=== PATIENT | female | born 1965 | race African-American/Black ===

== ENCOUNTER 2018-02-06 07:28 | Inpatient (IN) ==
[2018-02-06] MEDS ORDERED: Labetalol HCl Inj 100 MG/20 ML Vial IV.PUSH ONE (07:40)
--- NOTE | 2018-02-06 07:52 | ED ---
HPI General Chief Complaint: Chest Pain Stated Complaint: chest pain Time Seen by Provider: 02/06/18 07:39 History of Present Illness HPI narrative: This is a 52-year-old female with history of hypertension, renal failure, diabetes mellitus, hyperlipidemia, who presents here today with complaints of chest pain with radiation to her left upper back. Patient reports left-sided pain. She reports nausea with no diaphoresis. She reports pain is a sharp and stabbing pain. She states it is a 9-10 out of 10 on the pain scale. She states that it comes and goes but it is worse today. Patient states she has been off all of her medications for 2 weeks. She reports that she is visiting here from [place]. She reports her physician is in [place]. She denies any she denies any shortness of breath. Related Data Previous Rx's Medication Instructions Recorded aspirin 81 mg PO DAILY 30 Days #30 tab 02/08/18 bumetanide 2 mg PO DAILY 30 Days #60 tab 02/08/18 cholecalciferol (vitamin D3) 1,000 unit PO DAILY 30 Days #30 tab 02/08/18 [Vitamin D3] clonidine HCl [Catapres] 0.2 mg PO BID 30 Days #60 tab 02/08/18 gabapentin [Neurontin] 300 mg PO TID 30 Days #90 cap 02/08/18 hydralazine 50 mg PO TID 30 Days #90 tab 02/08/18 insulin detemir U-100 [Levemir 10 unit SUB-Q BID 30 Days #6 ml 02/08/18 U-100 Insulin] levofloxacin 250 mg PO DAILY@1100 5 Days tab 02/08/18 metoprolol tartrate 25 mg PO BID 30 Days #60 tab 02/08/18 Allergies Allergy/AdvReac Type Severity Reaction Status Date / Time No Known Allergies Allergy Verified 02/06/18 07:36 Review of Systems ROS: all other systems reviewed are negative Constitutional Reports system reviewed and no additional complaints, except as docu Eyes Reports blurry vision, Reports change in vision (Blurry vision.) and Denies diplopia ENT Reports system reviewed and no additional complaints, except as docu Cardiovascular Reports chest pain (As per HPI), Denies dyspnea and Denies dyspnea on exertion Respiratory Denies chest congestion, Denies pain on inspiration and Denies dyspnea Gastrointestinal Denies diarrhea, Reports nausea and Denies vomiting Genitourinary Reports system reviewed and no additional complaints, except as docu Musculoskeletal Reports system reviewed and no additional complaints, except as docu and Reports back pain (Left-sided chest pain radiating to her left back.) Neurologic Reports system reviewed and no additional complaints, except as docu, Denies dizziness and Denies headache(s) PMFSH Social History Social History Substance History: No History of Abuse Second Hand Smoke Exposure: No Smoking Status: Former smoker Tobacco Type: Cigarettes How Often Do You Have a Drink Containing Alcohol: Monthly or less Recent Travel in [facility] within the Last 8 Weeks: No Recent Out of Country Travel within the Last 8 Weeks: No Exam Narrative Exam Narrative: GENERAL: Well-developed well-nourished female in no acute respiratory distress. SKIN: Focused skin assessment warm/dry. HEAD: Atraumatic. Normocephalic. EYES: Pupils equal and round. No scleral icterus. No injection or drainage. ENT: No nasal bleeding or discharge. Mucous membranes pink and moist. NECK: Trachea midline. Supple with no obvious JVD. CARDIOVASCULAR: Regular rate and rhythm. There is a 3 out of 6 systolic murmur heard at the left sternal border. RESPIRATORY: No accessory muscle use. Clear to auscultation. Breath sounds equal bilaterally. GASTROINTESTINAL: Abdomen soft, non-tender, nondistended. Hepatic and splenic margins not palpable. MUSCULOSKELETAL: No obvious deformities. No clubbing. No cyanosis. No edema. NEUROLOGICAL: Awake and alert. No obvious cranial nerve deficits. Motor grossly within normal limits. Normal speech. Course Initial Documented Vital Signs Temperature 98.0 F 02/06/18 07:33 Pulse Rate 89 02/06/18 07:33 Respiratory Rate 19 02/06/18 07:33 Blood Pressure 253/114 H 02/06/18 07:33 Pulse Oximetry 100 02/06/18 07:33 Last Documented Vital Signs Temperature 97.3 F L 02/08/18 12:00 Pulse Rate 66 02/08/18 12:00 Respiratory Rate 18 02/08/18 12:00 Blood Pressure 145/72 H 02/08/18 12:00 Pulse Oximetry 99 02/08/18 12:00 Medical Decision Making MDM Narrative Medical decision making narrative: 52-year-old female with history of hypertension, diabetes mellitus, chronic kidney disease who presents today with uncontrolled hypertension. Patient states she has been out of her medications for 2 weeks. The patient was also complaining of chest pain that radiated to her back. Patient's cardiac enzymes are within normal limits. Patient has a creatinine above 5. She does not know her last creatinine. Patient also has anemia likely secondary to the chronic kidney disease. Her potassium was 5.3. She has been given 2 doses of hypertensive medication with the last bringing it down which was clonidine. Given this, the patient will be admitted to the hospital. Case was discussed with the [facility] hospitalist. Working diagnosis is chest pain and uncontrolled hypertension. Medical Screen Exam Complete: Yes Emergency Medical Condition: Yes Differential Diagnosis Differential Diagnosis: ACS versus hypertensive urgency versus metabolic derangement versus thoracic aneurysm Lab Data Result diagrams: 02/08/18 06:12 02/08/18 06:12 Lab Results 02/06/18 02/06/18 02/06/18 Range/Units 08:00 08:00 08:00 WBC 7.1 (4.0-11.0) th/mm3 RBC 3.04 L (4.00-5.30) mil/mm3 Hgb 8.4 L (11.6-15.3) gm/dL Hct 26.3 L (35.0-46.0) % MCV 86.6 (80.0-100.0) fL MCH 27.6 (27.0-34.0) pg MCHC 31.9 L (32.0-36.0) % RDW 17.8 H (11.6-17.2) % Plt Count 303 (150-450) th/mm3 MPV 7.1 (7.0-11.0) fL Neut % (Auto) 58.7 (16.0-70.0) % Lymph % (Auto) 33.2 (9.0-44.0) % [place] % (Auto) 5.7 (0.0-8.0) % Eos % (Auto) 1.7 (0.0-4.0) % Baso % (Auto) 0.7 (0.0-2.0) % Neut # (Auto) 4.2 (1.8-7.7) th/mm3 Lymph # (Auto) 2.4 (1.0-4.8) th/mm3 [place] # (Auto) 0.4 (0.0-0.9) th/mm3 Eos # (Auto) 0.1 (0.0-0.4) th/mm3 Baso # (Auto) 0.0 (0.0-0.2) th/mm3 WBC Differential . Differential Comment Auto diff final Sodium 144 (136-145) meq/L Potassium 4.5 (3.5-5.1) meq/L Chloride 116 H (98-107) meq/L Carbon Dioxide 17.3 L (21.0-32.0) meq/L Anion Gap 11 (5-15) meq/L BUN 48 H (7-18) mg/dL Creatinine 5.31 H (0.50-1.00) mg/dL Estimated GFR 10 L (>89) mL/min POC Glucose (68-110) mg/dl Random Glucose 109 H (74-106) mg/dL Hemoglobin A1c (4.3-6.0) % Calcium 7.9 L (8.5-10.1) mg/dL Phosphorus (2.5-4.9) mg/dL Iron (50-170) mcg/dL TIBC (250-450) mcg/dL % Saturation (20-50) % Ferritin (8-252) ng/mL Total Bilirubin 0.2 (0.2-1.0) mg/dL AST 17 (15-37) U/L ALT 21 (10-53) U/L Alkaline Phosphatase 77 (45-117) U/L Total Creatine Kinase 440 H (26-192) U/L CK-MB (CK-2) 5.9 H (0.5-3.6) ng/mL CK-MB (CK-2) % 1.3 (0.0-4.0) % Troponin I 0.05 (0.02-0.05) ng/mL Total Protein 5.9 L (6.4-8.2) g/dL Albumin 1.9 L (3.4-5.0) g/dL Urine Color (Yellw/Straw) Urine Clarity (Clear) Urine pH (5.0-8.5) Ur Specific [place] (1.002-1.035) Urine Protein (Neg-Trace) mg/dL Urine Glucose (UA) (Negative) mg/dL Urine Ketones (Negative) mg/dL Urine Occult Blood (Negative) Urine Nitrate (Negative) Urine Bilirubin (Negative) Urine Urobilinogen (Less than 2) mg/dL Ur Leukocyte Esterase (Negative) Urine RBC (0-3) /hpf Urine WBC (0-5) /hpf Ur Squamous Epith Cells (0-5) /hpf Urine Bacteria (None) /hpf Micro UA Comment Ur Microscopic Review Urine Culture Comments 02/06/18 02/06/18 02/06/18 Range/Units 08:00 08:00 08:00 WBC (4.0-11.0) th/mm3 RBC (4.00-5.30) mil/mm3 Hgb (11.6-15.3) gm/dL Hct (35.0-46.0) % MCV (80.0-100.0) fL MCH (27.0-34.0) pg MCHC (32.0-36.0) % RDW (11.6-17.2) % Plt Count (150-450) th/mm3 MPV (7.0-11.0) fL Neut % (Auto) (16.0-70.0) % Lymph % (Auto) (9.0-44.0) % [place] % (Auto) (0.0-8.0) % Eos % (Auto) (0.0-4.0) % Baso % (Auto) (0.0-2.0) % Neut # (Auto) (1.8-7.7) th/mm3 Lymph # (Auto) (1.0-4.8) th/mm3 [place] # (Auto) (0.0-0.9) th/mm3 Eos # (Auto) (0.0-0.4) th/mm3 Baso # (Auto) (0.0-0.2) th/mm3 WBC Differential Differential Comment Sodium (136-145) meq/L Potassium (3.5-5.1) meq/L Chloride (98-107) meq/L Carbon Dioxide (21.0-32.0) meq/L Anion Gap (5-15) meq/L BUN (7-18) mg/dL Creatinine (0.50-1.00) mg/dL Estimated GFR (>89) mL/min POC Glucose (68-110) mg/dl Random Glucose (74-106) mg/dL Hemoglobin A1c 7.4 H (4.3-6.0) % Calcium (8.5-10.1) mg/dL Phosphorus (2.5-4.9) mg/dL Iron 44 L (50-170) mcg/dL TIBC 203 L (250-450) mcg/dL % Saturation 21.7 (20-50) % Ferritin 210 (8-252) ng/mL Total Bilirubin (0.2-1.0) mg/dL AST (15-37) U/L ALT (10-53) U/L Alkaline Phosphatase (45-117) U/L Total Creatine Kinase (26-192) U/L CK-MB (CK-2) (0.5-3.6) ng/mL CK-MB (CK-2) % (0.0-4.0) % Troponin I (0.02-0.05) ng/mL Total Protein (6.4-8.2) g/dL Albumin (3.4-5.0) g/dL Urine Color (Yellw/Straw) Urine Clarity (Clear) Urine pH (5.0-8.5) Ur Specific [place] (1.002-1.035) Urine Protein (Neg-Trace) mg/dL Urine Glucose (UA) (Negative) mg/dL Urine Ketones (Negative) mg/dL Urine Occult Blood (Negative) Urine Nitrate (Negative) Urine Bilirubin (Negative) Urine Urobilinogen (Less than 2) mg/dL Ur Leukocyte Esterase (Negative) Urine RBC (0-3) /hpf Urine WBC (0-5) /hpf Ur Squamous Epith Cells (0-5) /hpf Urine Bacteria (None) /hpf Micro UA Comment Ur Microscopic Review Urine Culture Comments 02/06/18 02/06/18 02/07/18 Range/Units 16:57 17:59 05:15 WBC (4.0-11.0) th/mm3 RBC (4.00-5.30) mil/mm3 Hgb (11.6-15.3) gm/dL Hct (35.0-46.0) % MCV (80.0-100.0) fL MCH (27.0-34.0) pg MCHC (32.0-36.0) % RDW (11.6-17.2) % Plt Count (150-450) th/mm3 MPV (7.0-11.0) fL Neut % (Auto) (16.0-70.0) % Lymph % (Auto) (9.0-44.0) % [place] % (Auto) (0.0-8.0) % Eos % (Auto) (0.0-4.0) % Baso % (Auto) (0.0-2.0) % Neut # (Auto) (1.8-7.7) th/mm3 Lymph # (Auto) (1.0-4.8) th/mm3 [place] # (Auto) (0.0-0.9) th/mm3 Eos # (Auto) (0.0-0.4) th/mm3 Baso # (Auto) (0.0-0.2) th/mm3 WBC Differential Differential Comment Sodium (136-145) meq/L Potassium (3.5-5.1) meq/L Chloride (98-107) meq/L Carbon Dioxide (21.0-32.0) meq/L Anion Gap (5-15) meq/L BUN (7-18) mg/dL Creatinine (0.50-1.00) mg/dL Estimated GFR (>89) mL/min POC Glucose 213 H (68-110) mg/dl Random Glucose (74-106) mg/dL Hemoglobin A1c (4.3-6.0) % Calcium (8.5-10.1) mg/dL Phosphorus (2.5-4.9) mg/dL Iron (50-170) mcg/dL TIBC (250-450) mcg/dL % Saturation (20-50) % Ferritin (8-252) ng/mL Total Bilirubin (0.2-1.0) mg/dL AST (15-37) U/L ALT (10-53) U/L Alkaline Phosphatase (45-117) U/L Total Creatine Kinase (26-192) U/L CK-MB (CK-2) (0.5-3.6) ng/mL CK-MB (CK-2) % (0.0-4.0) % Troponin I 0.03 (0.02-0.05) ng/mL Total Protein (6.4-8.2) g/dL Albumin (3.4-5.0) g/dL Urine Color Yellow (Yellw/Straw) Urine Clarity Hazy H (Clear) Urine pH 6.0 (5.0-8.5) Ur Specific [place] 1.018 (1.002-1.035) Urine Protein 500 or greater (Neg-Trace) mg/dL Urine Glucose (UA) 500 or greater (Negative) mg/dL Urine Ketones Negative (Negative) mg/dL Urine Occult Blood Negative (Negative) Urine Nitrate Negative (Negative) Urine Bilirubin Negative (Negative) Urine Urobilinogen Less than 2 (Less than 2) mg/dL Ur Leukocyte Esterase Trace H (Negative) Urine RBC Less than 1 (0-3) /hpf Urine WBC 174 H (0-5) /hpf Ur Squamous Epith Cells <1 (0-5) /hpf Urine Bacteria Many H (None) /hpf Micro UA Comment Culture indicated Ur Microscopic Review Not Reportable Urine Culture Comments Culture indicated 02/07/18 02/07/18 02/07/18 Range/Units 07:28 09:02 12:59 WBC (4.0-11.0) th/mm3 RBC (4.00-5.30) mil/mm3 Hgb (11.6-15.3) gm/dL Hct (35.0-46.0) % MCV (80.0-100.0) fL MCH (27.0-34.0) pg MCHC (32.0-36.0) % RDW (11.6-17.2) % Plt Count (150-450) th/mm3 MPV (7.0-11.0) fL Neut % (Auto) (16.0-70.0) % Lymph % (Auto) (9.0-44.0) % [place] % (Auto) (0.0-8.0) % Eos % (Auto) (0.0-4.0) % Baso % (Auto) (0.0-2.0) % Neut # (Auto) (1.8-7.7) th/mm3 Lymph # (Auto) (1.0-4.8) th/mm3 [place] # (Auto) (0.0-0.9) th/mm3 Eos # (Auto) (0.0-0.4) th/mm3 Baso # (Auto) (0.0-0.2) th/mm3 WBC Differential Differential Comment Sodium 140 (136-145) meq/L Potassium 5.2 H (3.5-5.1) meq/L Chloride 116 H (98-107) meq/L Carbon Dioxide 14.7 L (21.0-32.0) meq/L Anion Gap 9 (5-15) meq/L BUN 52 H (7-18) mg/dL Creatinine 5.81 H (0.50-1.00) mg/dL Estimated GFR 9 L (>89) mL/min POC Glucose 163 H 173 H (68-110) mg/dl Random Glucose 180 H (74-106) mg/dL Hemoglobin A1c (4.3-6.0) % Calcium 7.9 L (8.5-10.1) mg/dL Phosphorus (2.5-4.9) mg/dL Iron (50-170) mcg/dL TIBC (250-450) mcg/dL % Saturation (20-50) % Ferritin (8-252) ng/mL Total Bilirubin (0.2-1.0) mg/dL AST (15-37) U/L ALT (10-53) U/L Alkaline Phosphatase (45-117) U/L Total Creatine Kinase (26-192) U/L CK-MB (CK-2) (0.5-3.6) ng/mL CK-MB (CK-2) % (0.0-4.0) % Troponin I (0.02-0.05) ng/mL Total Protein (6.4-8.2) g/dL Albumin (3.4-5.0) g/dL Urine Color (Yellw/Straw) Urine Clarity (Clear) Urine pH (5.0-8.5) Ur Specific [place] (1.002-1.035) Urine Protein (Neg-Trace) mg/dL Urine Glucose (UA) (Negative) mg/dL Urine Ketones (Negative) mg/dL Urine Occult Blood (Negative) Urine Nitrate (Negative) Urine Bilirubin (Negative) Urine Urobilinogen (Less than 2) mg/dL Ur Leukocyte Esterase (Negative) Urine RBC (0-3) /hpf Urine WBC (0-5) /hpf Ur Squamous Epith Cells (0-5) /hpf Urine Bacteria (None) /hpf Micro UA Comment Ur Microscopic Review Urine Culture Comments 02/07/18 02/07/18 02/08/18 Range/Units 17:14 20:31 06:12 WBC 6.4 (4.0-11.0) th/mm3 RBC 2.83 L (4.00-5.30) mil/mm3 Hgb 7.9 L (11.6-15.3) gm/dL Hct 24.0 L (35.0-46.0) % MCV 84.7 (80.0-100.0) fL MCH 27.7 (27.0-34.0) pg MCHC 32.8 (32.0-36.0) % RDW 17.4 H (11.6-17.2) % Plt Count 286 (150-450) th/mm3 MPV 7.6 (7.0-11.0) fL Neut % (Auto) (16.0-70.0) % Lymph % (Auto) (9.0-44.0) % [place] % (Auto) (0.0-8.0) % Eos % (Auto) (0.0-4.0) % Baso % (Auto) (0.0-2.0) % Neut # (Auto) (1.8-7.7) th/mm3 Lymph # (Auto) (1.0-4.8) th/mm3 [place] # (Auto) (0.0-0.9) th/mm3 Eos # (Auto) (0.0-0.4) th/mm3 Baso # (Auto) (0.0-0.2) th/mm3 WBC Differential Differential Comment Sodium (136-145) meq/L Potassium (3.5-5.1) meq/L Chloride (98-107) meq/L Carbon Dioxide (21.0-32.0) meq/L Anion Gap (5-15) meq/L BUN (7-18) mg/dL Creatinine (0.50-1.00) mg/dL Estimated GFR (>89) mL/min POC Glucose 212 H 226 H (68-110) mg/dl Random Glucose (74-106) mg/dL Hemoglobin A1c (4.3-6.0) % Calcium (8.5-10.1) mg/dL Phosphorus (2.5-4.9) mg/dL Iron (50-170) mcg/dL TIBC (250-450) mcg/dL % Saturation (20-50) % Ferritin (8-252) ng/mL Total Bilirubin (0.2-1.0) mg/dL AST (15-37) U/L ALT (10-53) U/L Alkaline Phosphatase (45-117) U/L Total Creatine Kinase (26-192) U/L CK-MB (CK-2) (0.5-3.6) ng/mL CK-MB (CK-2) % (0.0-4.0) % Troponin I (0.02-0.05) ng/mL Total Protein (6.4-8.2) g/dL Albumin (3.4-5.0) g/dL Urine Color (Yellw/Straw) Urine Clarity (Clear) Urine pH (5.0-8.5) Ur Specific [place] (1.002-1.035) Urine Protein (Neg-Trace) mg/dL Urine Glucose (UA) (Negative) mg/dL Urine Ketones (Negative) mg/dL Urine Occult Blood (Negative) Urine Nitrate (Negative) Urine Bilirubin (Negative) Urine Urobilinogen (Less than 2) mg/dL Ur Leukocyte Esterase (Negative) Urine RBC (0-3) /hpf Urine WBC (0-5) /hpf Ur Squamous Epith Cells (0-5) /hpf Urine Bacteria (None) /hpf Micro UA Comment Ur Microscopic Review Urine Culture Comments 02/08/18 Range/Units 06:12 WBC (4.0-11.0) th/mm3 RBC (4.00-5.30) mil/mm3 Hgb (11.6-15.3) gm/dL Hct (35.0-46.0) % MCV (80.0-100.0) fL MCH (27.0-34.0) pg MCHC (32.0-36.0) % RDW (11.6-17.2) % Plt Count (150-450) th/mm3 MPV (7.0-11.0) fL Neut % (Auto) (16.0-70.0) % Lymph % (Auto) (9.0-44.0) % [place] % (Auto) (0.0-8.0) % Eos % (Auto) (0.0-4.0) % Baso % (Auto) (0.0-2.0) % Neut # (Auto) (1.8-7.7) th/mm3 Lymph # (Auto) (1.0-4.8) th/mm3 [place] # (Auto) (0.0-0.9) th/mm3 Eos # (Auto) (0.0-0.4) th/mm3 Baso # (Auto) (0.0-0.2) th/mm3 WBC Differential Differential Comment Sodium 143 (136-145) meq/L Potassium 5.3 H (3.5-5.1) meq/L Chloride 116 H (98-107) meq/L Carbon Dioxide 17.9 L (21.0-32.0) meq/L Anion Gap 9 (5-15) meq/L BUN 56 H (7-18) mg/dL Creatinine 6.05 H (0.50-1.00) mg/dL Estimated GFR 9 L (>89) mL/min POC Glucose (68-110) mg/dl Random Glucose 116 H (74-106) mg/dL Hemoglobin A1c (4.3-6.0) % Calcium 7.6 L (8.5-10.1) mg/dL Phosphorus 5.5 H (2.5-4.9) mg/dL Iron (50-170) mcg/dL TIBC (250-450) mcg/dL % Saturation (20-50) % Ferritin (8-252) ng/mL Total Bilirubin (0.2-1.0) mg/dL AST (15-37) U/L ALT (10-53) U/L Alkaline Phosphatase (45-117) U/L Total Creatine Kinase (26-192) U/L CK-MB (CK-2) (0.5-3.6) ng/mL CK-MB (CK-2) % (0.0-4.0) % Troponin I (0.02-0.05) ng/mL Total Protein (6.4-8.2) g/dL Albumin 1.5 L (3.4-5.0) g/dL Urine Color (Yellw/Straw) Urine Clarity (Clear) Urine pH (5.0-8.5) Ur Specific [place] (1.002-1.035) Urine Protein (Neg-Trace) mg/dL Urine Glucose (UA) (Negative) mg/dL Urine Ketones (Negative) mg/dL Urine Occult Blood (Negative) Urine Nitrate (Negative) Urine Bilirubin (Negative) Urine Urobilinogen (Less than 2) mg/dL Ur Leukocyte Esterase (Negative) Urine RBC (0-3) /hpf Urine WBC (0-5) /hpf Ur Squamous Epith Cells (0-5) /hpf Urine Bacteria (None) /hpf Micro UA Comment Ur Microscopic Review Urine Culture Comments Imaging Data Radiologist's impression: Abdomen/Bladder Ultrasound 02/06/18 00:00 CONCLUSION: 1. Increased renal echotexture characteristic of medical renal disease. No hydronephrosis or perinephric fluid. Chest X-Ray 02/06/18 07:40 CONCLUSION: 1. No acute cardiopulmonary disease. Myocardial Perfusion Scan Nuc Med 02/07/18 00:00 CONCLUSION: 1. Negative for stress-induced ischemia although the inferior wall is obscured. Correlation suggested. Discharge Plan Discharge Disposition Patient Disposition: Against Medical Advice Discharge Condition Condition: Stable Discharge Order Discharge Orders: AMA Discharge (Routine); Ordered 02/08/18 Ordered By: Tatum Vizcarra Discharge Details Anticipated Discharge Date: 02/08/18 Diagnosis: Hypertensive urgency, Chronic kidney disease, stage 5, Type 2 diabetes mellitus with diabetic chronic kidney disease, Anemia of renal disease, Atypical chest pain Physicians Team ED Provider: Octaviano Odell Primary Care Provider: Primary Care Tomasa Qureshi Attending Provider: Tatum Vizcarra Other Providers: Naveen Hawley Discharge Interventions Interventions: ED Discharge Assessment Last Done: 02/06/18 12:21 Vital Signs Last Done: 02/06/18 12:22 Status ED Status: Left Department Discharge Information Discharge Date/Time: 02/06/18 12:25
[2018-02-06 08:36] LABS: Baso % (Auto) 0.7 % (0.0-2.0); Eos # (Auto) 0.1 th/mm3 (0.0-0.4); Eos % (Auto) 1.7 % (0.0-4.0); Hematocrit 26.3 % (35.0-46.0); Hemoglobin 8.4 gm/dL (11.6-15.3); Lymph # (Auto) 2.4 th/mm3 (1.0-4.8); Lymph % (Auto) 33.2 % (9.0-44.0); Mean Corpuscular HGB Conc 31.9 % (32.0-36.0); Mean Corpuscular Hemoglobin 27.6 pg (27.0-34.0); Mean Corpuscular Volume 86.6 fL (80.0-100.0); Mean Platelet Volume 7.1 fL (7.0-11.0); Mono # (Auto) 0.4 th/mm3 (0.0-0.9); Mono % (Auto) 5.7 % (0.0-8.0); Neut # (Auto) 4.2 th/mm3 (1.8-7.7); Neut % (Auto) 58.7 % (16.0-70.0); Platelet Count 303 th/mm3 (150-450); Red Blood Count 3.04 mil/mm3 (4.00-5.30); Red Cell Distribution Width 17.8 % (11.6-17.2); White Blood Count 7.1 th/mm3 (4.0-11.0)
[2018-02-06 08:43] LABS: Alanine Aminotransferase 21 U/L (10-53); Albumin 1.9 g/dL (3.4-5.0); Anion Gap 11 meq/L (5-15); Aspartate Aminotransferase 17 U/L (15-37); Blood Urea Nitrogen 48 mg/dL (7-18); Calcium 7.9 mg/dL (8.5-10.1); Carbon Dioxide 17.3 meq/L (21.0-32.0); Chloride 116 meq/L (98-107); Glomerular Filtration Rate 10 mL/min (>89); Glucose,Random 109 mg/dL (74-106); Potassium 4.5 meq/L (3.5-5.1); Sodium 144 meq/L (136-145)
[2018-02-06 08:47] LABS: Alkaline Phosphatase 77 U/L (45-117); Total Protein 5.9 g/dL (6.4-8.2); Troponin I 0.05 ng/mL (0.02-0.05)
[2018-02-06 10:10] LABS: CKMB Percent 1.3 % (0.0-4.0); Creatine Kinase MB 5.9 ng/mL (0.5-3.6)
[2018-02-06] MEDS ORDERED: Dextrose 50% in Water 50 ML Vial IV.PUSH PRN (16:23)
[2018-02-06] MEDS: Gabapentin 300 MG Capsule PO SCH (17:14)
[2018-02-06 17:48] LABS: % Iron Saturation 21.7 % (20-50)
[2018-02-06] MEDS: Insulin NovoLOG Aspart Correctional Sugar Inj SQ SCH ×2 (17:55→21:34)
[2018-02-06 17:58] LABS: Hemoglobin A1c 7.4 % (4.3-6.0)
[2018-02-06] MEDS ORDERED: hydrALAZINE 25 MG Tablet PO SCH ×2 (18:00→21:00)
[2018-02-06] MEDS: hydrALAZINE 25 MG Tablet PO SCH (18:16)
--- NOTE | 2018-02-06 18:19 | ECHRPT ---
Indication: Chest Pain CONCLUSIONS Mildly dilated left ventricle. Wall thickness is measured at the upper limits of normal. The left ventricular systolic function is low normal with an estimated ejection fraction in the rang e of 50- 55%. [id number] mitral valve regurgitation. Trileaflet aortic valve. Mild aortic valve regurgitation. There is trace tricuspid valve regurgitation. The estimated pulmonary arterial pressure is 48 mmHg. BP: / HR: Rhythm: MEASUREMENTS (Male / Female) Normal Values Technical Quality:Good 2D ECHO LV Diastolic Diameter PLAX 5.4 cm 4.2 - 5.9 / 3.9 - 5.3 cm LV Systolic Diameter PLAX 4.1 cm IVS Diastolic Thickness 0.9 cm 0.6 - 1.0 / 0.6 - 0.9 cm LVPW Diastolic Thickness 1.1 cm 0.6 - 1.0 / 0.6 - 0.9 cm LV Relative Wall Thickness 0.4 RV Internal Dim ED PLAX 3.1 cm LVOT Diameter 2.1 cm Aortic Root Diameter 2.8 cm LA Systolic Diameter LX 3.8 cm 3.0 - 4.0 / 2.7 - 3.8 cm DOPPLER AV Peak Velocity 138.0 cm/s AV Peak Gradient 7.6 mmHg AI Peak Velocity 477.5 cm/s AI Peak Gradient 91.2 mmHg AI Pressure Half Time 564.0 ms LVOT Peak Velocity 93.2 cm/s LVOT Peak Gradient 3.5 mmHg AV Area Cont Eq pk 2.3 cm Mitral E Point Velocity 83.9 cm/s Mitral A Point Velocity 128.0 cm/s Mitral E to A Ratio 0.7 LV E' Lateral Velocity 4.1 cm/s Mitral E to LV E' Lateral Ratio 20.5 LV E' Septal Velocity 4.6 cm/s Mitral E to LV E' Septal Ratio 18.3 TR Peak Velocity 308.0 cm/s TR Peak Gradient 37.9 mmHg Right Atrial Pressure 10.0 mmHg Pulmonary Artery Systolic Pressu 47.9 mmHg Right Ventricular Systolic Press 47.9 mmHg PV Peak Velocity 53.7 cm/s PV Peak Gradient 1.2 mmHg FINDINGS LEFT VENTRICLE Mildly dilated left ventricle. Wall thickness is measured at the upper limits of normal. The left ventricular systolic function is low normal with an estimated ejection fraction in the rang e of 50- 55%. RIGHT VENTRICLE Normal right ventricular size and systolic function. LEFT ATRIUM The left atrial size is normal. RIGHT ATRIUM The right atrial size is normal. ATRIAL SEPTUM Normal atrial septal thickness without atrial level shunting by limited color doppler interrogation. AORTA The aortic root and proximal ascending aorta are normal in size on limited imaging. MITRAL VALVE [id number] mitral valve regurgitation. AORTIC VALVE Trileaflet aortic valve. Mild aortic valve regurgitation. TRICUSPID VALVE There is trace tricuspid valve regurgitation. The estimated pulmonary arterial pressure is 48 mmHg. PULMONARY VALVE Trivial pulmonary valve regurgitation. VESSELS The inferior vena cava is normal in size. PERICARDIUM No pericardial effusion. Reymundo Lucas MD, FACC (Electronically Signed) Final Date:06 February 2018 18:18
[2018-02-06] MEDS: Ferrous Sulfate 325 MG Tablet PO SCH (21:33)
[2018-02-06] MEDS: Metoprolol Tartrate 50 MG Tablet PO SCH (21:33)
[2018-02-06] MEDS: Heparin - SQ 10,000 UNITS/ML Vial SQ SCH (21:34)
--- NOTE | 2018-02-07 00:54 | ECG ---
Date Performed: 02/06/2018 Time Performed: 07:58:41 PTAGE: 52 years EKG: Sinus rhythm NORMAL ECG NO PREVIOUS TRACING DOCTOR: Juan Dalal Interpretating Date/Time 02/07/2018 00:53:39
[2018-02-07 06:09] LABS: Bacteria,Urine Many /hpf; Bilirubin,Urine Negative (Negative); Clarity,Urine Hazy (Clear); Color,Urine Yellow (Yellw/Straw); Glucose,Urine (UA) 500 or Greater mg/dL (Negative); Leukocyte Esterase,Urine Trace (Negative); Nitrite,Urine Negative (Negative); Specific Gravity,Urine 1.018 (1.002-1.035); Squamous Epithelial Cell,Urine <1 /hpf (0-5)
[2018-02-07] MEDS: Insulin NovoLOG Aspart Correctional Sugar Inj SQ SCH ×4 (09:03→21:39)
[2018-02-07] MEDS: Ferrous Sulfate 325 MG Tablet PO SCH ×2 (09:08→21:38)
[2018-02-07] MEDS: Heparin - SQ 10,000 UNITS/ML Vial SQ SCH ×2 (09:09→21:38)
[2018-02-07] MEDS: Metoprolol Tartrate 50 MG Tablet PO SCH ×2 (09:10→21:38)
[2018-02-07] MEDS: Gabapentin 300 MG Capsule PO SCH ×3 (09:12→18:04)
[2018-02-07] MEDS: hydrALAZINE 25 MG Tablet PO SCH ×2 (09:20→13:30)
[2018-02-07 10:04] LABS: Calcium 7.9 mg/dL (8.5-10.1); Carbon Dioxide 14.7 meq/L (21.0-32.0); Potassium 5.2 meq/L (3.5-5.1)
[2018-02-07] MEDS ORDERED: Regadenoson Inj 0.4 MG/5 ML Syringe IV.PUSH ONE (10:20)
[2018-02-07] MEDS: Insulin Detemir Inj 1,000 UNIT/10 ML Vial SQ SCH ×2 (13:27→21:39)
[2018-02-07] MEDS: levoFLOXacin 250 MG Tablet PO SCH (13:30)
[2018-02-07] MEDS: hydrALAZINE 50 MG Tablet PO SCH (18:08)
[2018-02-08 07:13] LABS: Hemoglobin 7.9 gm/dL (11.6-15.3); Mean Corpuscular HGB Conc 32.8 % (32.0-36.0); Mean Corpuscular Hemoglobin 27.7 pg (27.0-34.0); Mean Corpuscular Volume 84.7 fL (80.0-100.0); Mean Platelet Volume 7.6 fL (7.0-11.0); Platelet Count 286 th/mm3 (150-450); Red Blood Count 2.83 mil/mm3 (4.00-5.30); Red Cell Distribution Width 17.4 % (11.6-17.2); White Blood Count 6.4 th/mm3 (4.0-11.0)
[2018-02-08 07:39] LABS: Albumin 1.5 g/dL (3.4-5.0); Calcium 7.6 mg/dL (8.5-10.1); Carbon Dioxide 17.9 meq/L (21.0-32.0); Potassium 5.3 meq/L (3.5-5.1)
[2018-02-08 07:40] LABS: Phosphorus 5.5 mg/dL (2.5-4.9)
[2018-02-08] MEDS ORDERED: Sodium Polystyrene Sulfonate/Sorbitol Liq 15 GM/60 ML UDC PO ONE (08:00)
[2018-02-08] MEDS: Ferrous Sulfate 325 MG Tablet PO SCH (08:17)
[2018-02-08] MEDS: Gabapentin 300 MG Capsule PO SCH (08:18)
[2018-02-08] MEDS: Metoprolol Tartrate 50 MG Tablet PO SCH (08:18)
[2018-02-08] MEDS: hydrALAZINE 50 MG Tablet PO SCH ×2 (08:19→13:01)
[2018-02-08] MEDS: Insulin NovoLOG Aspart Correctional Sugar Inj SQ SCH (08:19)
[2018-02-08] MEDS: Heparin - SQ 10,000 UNITS/ML Vial SQ SCH (08:19)
[2018-02-08] MEDS: Insulin Detemir Inj 1,000 UNIT/10 ML Vial SQ SCH (08:19)
[2018-02-08] MEDS ORDERED: Metoprolol Tartrate 25 MG Tablet PO SCH (09:00)
[2018-02-08] MEDS ORDERED: Insulin Detemir Inj 1,000 UNIT/10 ML Vial SQ SCH (09:00)
[2018-02-08] MEDS ORDERED: Iron Sucrose Inj 200 MG in Sodium Chlor 0.9% Inj 100 ML IV.SIG ONE (13:00)
[2018-02-08] MEDS ORDERED: Epoetin Alfa Inj 20,000 UNIT/ML Vial SQ ONE (13:00)
[2018-02-08] MEDS: levoFLOXacin 250 MG Tablet PO SCH (13:01)
[2018-02-09] MEDS ORDERED: Gabapentin 100 MG Capsule PO SCH (09:00)
== END 2018-02-08 17:07 | disposition left against medical advice (07) ==
LOC: NEPC 07:28 → NEDA 11:52 → N04 12:46
PROVIDERS: ADMIT Internal Medicine; ATTEND Internal Medicine